=== PATIENT | female | born 1955 | race American Indian/Alaskan Native ===

== ENCOUNTER 2017-11-05 22:08 | Emergency (ER) | payer OTHER ==
[2017-11-05] MEDS ORDERED: fentaNYL 100 MCG/2 ML INJ ONE (22:17)
[2017-11-05] MEDS ORDERED: ONDANSETRON 4 MG/2 ML VIAL ONE (22:17)
[2017-11-05] MEDS ORDERED: ONDANSETRON 4 MG/2 ML VIAL IVP ONE (22:24)
[2017-11-05] MEDS ORDERED: fentaNYL 100 MCG/2 ML INJ IVP ONE ×2 (22:24→22:41)
[2017-11-05 22:30] VITALS: RESP 16; TEMP 98.2
--- NOTE | 2017-11-05 22:41 | EDPHY ---
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 Patient reports she was getting into bed this evening, while maneuvering to get into bed she felt her shoulder dislocate. Since then she has had severe pain. Worsened with any movement. She denies other potential precipitating factors including direct trauma. She denies associated signs or symptoms including no abnormal coolness or numbness in the arm. She has dislocated the shoulder previously, however last time she believes it was a posterior dislocation requiring conscious sedation to relocate. She is followed by an orthopedic at [facility] in [place], [place]. - Personal History Current Tetanus/Diphtheria Vaccine: Yes Current Tetanus Diphtheria and Acellular Pertussis (TDAP): Yes - Medical/Surgical History Hx Asthma: No Hx Chronic Respiratory Disease: No Hx Diabetes: No Hx Cardiac Disease: No Hx Renal Disease: No Hx Cirrhosis: No Hx Alcoholism: No Hx HIV/AIDS: No Hx Splenectomy or Spleen Trauma: No Other PMH: frozen shoulder surgery - Social History Smoking Status: Never smoked - Physical Exam Exam: General: Alert, nontoxic Skin: No open wounds to the left arm Musculoskeletal: Obvious deformity of the left shoulder, appears consistent with a shoulder dislocation. She does not want move the shoulder secondary to pain. She can move the elbow, wrist and digits. Vascular: Radial pulses 2+. Cap refill brisk in the left hand. Neurologic: Sensation intact throughout the left hand. Constitutional: Initial Vital Signs Temperature (C) 36.8 C 11/05/17 22:20 Heart Rate 69 11/05/17 22:20 Respiratory Rate 16 11/05/17 22:20 Blood Pressure 140/90 H 11/05/17 22:20 O2 Sat (%) 98 11/05/17 22:20 O2 Delivery Mode Nasal Cannula O2 (L/minute) 2 Allergies/Adverse Reactions: erythromycin base [From Erythrocin] Allergy (Verified 11/05/17 22:15) Home Medications: Medication Instructions Recorded Aspirin 11/05/17 Crestor 11/05/17 Spironolactone 11/05/17 Medical Decision Making - Diagnostics Imaging Results: Imaging Impressions Shoulder X-Ray 11/05/17 22:12 Impression: Anterior left shoulder dislocation. Shoulder X-Ray 11/05/17 22:44 Impression: 1. Reduction in left shoulder anterior dislocation. No fracture identified. 2. Cortical lucency involving the medial proximal left humeral diaphysis. This could represent a tunnel for suture anchor if this patient has had long head biceps tenodesis performed; if not, recommend further characterization with MRI. Examination reviewed with Christiano Arellano PA-C, at 11:00 PM. Imaging: I viewed and interpreted images myself Procedures: Procedure: Dislocation reduction. The dislocation of the left shoulder was reduced using massage and gentle axial traction technique without complications. Post reduction the patient's neurovascular exam is normal. Post reduction x-ray demonstrates reduction of the joint to the anatomic position. The procedure was performed by myself. Patient was placed in a sling ED Course/Re-evaluation: The patient was seen under the supervision of my secondary supervising physician Dr. Justus Villalobos. Patient presented to the emergency department for a suspected left shoulder dislocation. The arm was neurovascularly intact. X-ray confirmed a dislocation. The dislocation was reduced. Repeat x-ray showed good anatomic alignment. A lucency was noted, in discussion with the patient, who is an senior compensation analyst, she states she has had surgery for the biceps head which is consistent with the finding. She will be discharged home. Home care was discussed. She was asked to follow up with an orthopedic doctor either here in town or back at the [facility]. She is given copies of her x-ray reports. Home care is discussed. Return precautions are given. The patient voiced understanding and agreement with plan. Differential Diagnosis: Included but not limited to contusion, sprain or strain, bony fracture, shoulder dislocation - Data Points Medications Given: Discontinued Medications Fentanyl (Sublimaze) 100 mcg IVP EDNOW ONE Stop: 11/05/17 22:25 Last Admin: 11/05/17 22:30 Dose: 100 mcg Fentanyl (Sublimaze) 50 mcg IVP EDNOW ONE Stop: 11/05/17 22:42 Last Admin: 11/05/17 22:42 Dose: 50 mcg Ondansetron HCl (Zofran) 4 mg IVP EDNOW ONE Stop: 11/05/17 22:25 Last Admin: 11/05/17 22:30 Dose: 4 mg Departure - Departure Disposition: Home, Routine, Self-Care Clinical Impression: Shoulder dislocation Qualifiers: Encounter type: initial encounter Laterality: left Qualified Code(s): S43.005A - Unspecified dislocation of left shoulder joint, initial encounter Condition: Good Instructions: Shoulder Dislocation (ED) Additional Instructions: Follow-up with orthopedics for continued evaluation and care Ice the injury, 20 min on, 3 times daily for the next 3 days In regards to pain control see the following -use ibuprofen 600 mg 3 times a day for the next 2-3 days -in addition You can take 1000 mg of Tylenol 3 times a day for the next 2-3 days Wear sling until told otherwise by Orthopedics If symptoms worsen or new symptoms develop return to the emergency room for recheck Referrals: Rashard Lopez MD [Medical Doctor] - As per Instructions
[2017-11-05 22:59] VITALS: BP 119/54; PULSE 71; O2SAT 99
== END 2017-11-05 23:18 | disposition home or self-care (01) ==
PROC: 0RSKXZZ Reposition Left Shoulder Joint, External Approach (ICD-10-PCS; principal; 2017-11-05)
DX: S43.015A Anterior dislocation of left humerus, initial encounter (principal); Z79.82 Long term (current) use of aspirin; X58.XXXA Exposure to other specified factors, initial encounter
CPT/HCPCS: 96374; A4565; J2405; J3010; L3980